=== PATIENT | male | born 1940 | race Caucasian/White ===

== ENCOUNTER 2020-09-13 17:53 | Emergency (ER) | payer OTHER ==
[~2020-09-13 17:53] MED LIST: PERCOCET 5/325 T1 EA PO
[2020-09-13 18:40] LABS: HEMOGLOBIN 13.9 gm/dl (14.0-17.5); RED BLOOD COUNT 4.37 M/UL (4.20-5.50); WHITE BLOOD COUNT 7.6 K/UL (4.5-11.0)
[2020-09-13 19:08] LABS: BUN/CREATININE RATIO 22 (0-10)
== END 2020-09-13 19:30 | disposition home or self-care (01) ==
LOC: ER1 17:53
PROVIDERS: Emergency Medicine
DX: I49.3 Ventricular premature depolarization (principal); I10 Essential (primary) hypertension
CPT/HCPCS: 71045; 80053; 82550; 82553; 83735; 83880; 84484; 85025; 85379; 93005; 99285